=== PATIENT | male | born 1990 | race Caucasian/White ===

== ENCOUNTER 2017-03-14 02:16 | Emergency (ER) | payer OTHER, MEDICAID ==
--- NOTE | 2017-03-14 03:24 | ER Document Report ---
ED General - General Chief Complaint: Suicidal Ideation Stated Complaint: SUICIDAL IDEATIONS Time Seen by Provider: 03/14/17 03:23 Notes: Patient is a 26-year-old male who presents with complaints of hearing voices and also having suicidal thoughts and the plan. Patient has history of depression is on Effexor. He says over the last month he has been having episodes of suddenly feeling suicidal. He says there is in particular that seems to trigger. He says there is no bad events in his life at this time. He says these feelings will come out of nowhere. He says when he has these feelings he also will have with to him feels like people arguing her voice is arguing inside his head. 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 He said tonight he suddenly felt very suicidal and was having voices in his head. He said he started mixing pesticides together in a juice bottle and then was about the drink them before he realized what was going on. He quickly called his for help and was brought here. Currently he says he feels okay but is very concerned in the way that these symptoms and feelings come on suddenly. TRAVEL OUTSIDE OF THE [place] IN LAST 30 DAYS: No - Related Data Allergies/Adverse Reactions: No Known Allergies Allergy (Unverified 03/14/17 02:21) Past Medical History - Social History Smoking Status: Current Every Day Smoker Frequency of alcohol use: None Drug Abuse: None Family History: Reviewed & Not Pertinent Patient has suicidal ideation: Yes Patient has homicidal ideation: No Renal/ Medical History: Denies: Hx Peritoneal Dialysis Review of Systems - Review of Systems Notes: My Normal Review Basic REVIEW OF SYSTEMS: CONSTITUTIONAL : Denies fever, chills, or sweats. Denies recent illness. RESPIRATORY: Denies cough, cold, or chest congestion. Denies shortness of breath, difficulty breathing, or wheezing. GASTROINTESTINAL: Denies abdominal pain. Denies nausea, vomiting, or diarrhea. MUSCULOSKELETAL: Denies neck or back pain or joint pain or swelling. SKIN: Denies rash or skin lesions. NEUROLOGICAL: Denies altered mental status or loss of consciousness. Denies headache. Denies weakness or paralysis or loss of use of either side. Denies problems with gait or speech. Denies sensory or motor loss. PSYCHIATRIC: Auditory hallucinations. Suicidal ideations. ALL OTHER SYSTEMS REVIEWED AND NEGATIVE. Physical Exam - Vital signs Vitals: Temp Pulse Resp BP Pulse Ox 98 F 102 H 18 159/100 H 98 03/14/17 02:20 03/14/17 02:20 03/14/17 02:20 03/14/17 02:20 03/14/17 02:20 - Notes Notes: General Appearance: Well nourished, alert, cooperative, no acute distress, no obvious discomfort. Vitals: reviewed, See vital signs table. Head: Several scratches to the face which patient says her self-induced. No redness or swelling around them. No signs of infection. Eyes: PERRL, EOMI, Conjuctiva clear Mouth: No decreasd moisture Neck: Supple, no neck tenderness, Lungs: No wheezing, No rales, No rhonci, No accessory muscle use, good air exchange bilaterally. Heart: Normal rate, Regular rythm, No murmur, no rub Abdomen: Normal BS, soft, No rigidity, No abdominal tenderness, No guarding, no rebound, no abdominal masses, no organomegaly Extremities: strength 5/5 in all extremities, good pulses in all extremities, no swelling or tenderness in the extremities, no edema. Skin: warm, dry, appropriate color, no rash Neuro: speech clear, oriented x 3, normal affect, responds appropriately to questions. Course - Re-evaluation Re-evalutation: 03/14/17 05:30 Patient is medically stable for psychiatric evaluation and placement. He is voluntary and does want help. He therefore was not placed and found to paperwork. If patient does decide he wants to leave then we may have to consider placing him on involuntary commitment paperwork. Dictation of this chart was performed using voice recognition software; therefore, there may be some unintended grammatical errors. - Vital Signs Vital signs: Temp Pulse Resp BP Pulse Ox 98 F 102 H 18 159/100 H 98 03/14/17 02:20 03/14/17 02:20 03/14/17 02:20 03/14/17 02:20 03/14/17 02:20 - Laboratory Result Diagrams: 03/14/17 03:00 03/14/17 03:00 Laboratory results interpreted by me: 03/14/17 03/14/17 03/14/17 03:00 03:00 03:00 WBC 13.2 H Absolute Neutrophils 8.9 H Total Protein 8.3 H Albumin 5.2 H Urine Blood MODERATE H Salicylates < 1.0 L Acetaminophen < 10 L - EKG Interpretation by Me Additional EKG results interpreted by me: 03/14/17 03:24 EKG is reviewed and interpreted by me. EKG shows normal sinus rhythm with rate of [address] segment elevation or depression. No ischemic T-wave inversions. NH interval, QRS duration, QTc intervals are within normal range. No old EKG available for comparison. Discharge - Discharge Clinical Impression: Suicidal ideation, Auditory hallucination Depression Qualifiers: Depression Type: unspecified Qualified Code(s): F32.9 - Major depressive disorder, single episode, unspecified Condition: Stable Disposition: PSYCH HOSP/UNIT
[2017-03-14] MEDS ORDERED: NICOTINE 14 MG/24 HR PATCH.TD24 TD ONE ×2 (03:31→09:00)
[2017-03-14 03:49] LABS: ABSOLUTE BASOPHILS # (AUTO) 0.1 10^3/uL (0.0-0.2); ABSOLUTE EOSINOPHILS # (AUTO) 0.2 10^3/uL (0.0-0.6); ABSOLUTE LYMPHOCYTES (AUTO) 3.2 10^3/uL (0.5-4.7); ABSOLUTE MONOCYTES (AUTO) 0.8 10^3/uL (0.1-1.4); ABSOLUTE NEUT (AUTO) 8.9 10^3/uL (1.7-8.2); BASOPHILS % (AUTO) 0.6 % (0-2); EOSINOPHILS % (AUTO) 1.7 % (0-6); HEMATOCRIT 46.7 % (37.9-51.0); HEMOGLOBIN 16.6 g/dL (13.5-17.0); HGB HCT DIFFERENCE 3.1; LYMPHOCYTES % (AUTO) 24.2 % (13-45); MEAN CORPUSCULAR HEMOGLOBIN 31.1 pg (27.0-33.4); MEAN CORPUSCULAR HGB CONC 35.5 g/dL (32.0-36.0); MEAN CORPUSCULAR VOLUME 88 fl (80-97); MONOCYTES % (AUTO) 6.4 % (3-13); RED BLOOD COUNT 5.34 10^6/uL (4.35-5.55); RED CELL DISTRIBUTION WIDTH 12.7 % (11.5-14.0); SEGMENTED NEUTROPHILS % (AUTO) 67.1 % (42-78); WHITE BLOOD COUNT 13.2 10^3/uL (4.0-10.5)
[2017-03-14 04:00] LABS: ALANINE AMINOTRANSFERASE 53 U/L (21-72); ALBUMIN 5.2 g/dL (3.5-5.0); ALCOHOL < 10 mg/dL (NONE DETECTED); ALKALINE PHOSPHATASE 76 U/L (38-126); ANION GAP 16 (5-19); ASPARTATE AMINO TRANSFERASE 26 U/L (17-59); BILIRUBIN,DIRECT 0.3 mg/dL (0.0-0.4); BILIRUBIN,TOTAL 1.1 mg/dL (0.2-1.3); BLOOD UREA NITROGEN 11 mg/dL (7-20); CALCIUM 10.1 mg/dL (8.4-10.2); CARBON DIOXIDE 26 mmol/L (22-30); CHLORIDE 100 mmol/L (98-107); CREATININE RESULT 0.82 mg/dL (0.52-1.25); GLUCOSE 79 mg/dL (75-110); POTASSIUM 3.6 mmol/L (3.6-5.0); SODIUM 141.9 mmol/L (137-145); TOTAL PROTEIN 8.3 g/dL (6.3-8.2)
[2017-03-14 04:39] LABS: APPEARANCE,URINE CLEAR; BILIRUBIN,URINE NEGATIVE (NEGATIVE); GLUCOSE, URINE NEGATIVE (NEGATIVE); KETONES,URINE NEGATIVE (NEGATIVE); LEUKOCYTE ESTERASE,URINE NEGATIVE (NEGATIVE); NITRITE,URINE NEGATIVE (NEGATIVE); PROTEIN,URINE NEGATIVE (NEGATIVE); URINE SPECIFIC GRAVITY 1.006; UROBILINOGEN,URINE NEGATIVE mg/dL (<2.0)
[2017-03-14 05:04] LABS: URINE BARBITURATES SCREEN NEGATIVE; URINE METHADONE SCREEN NEGATIVE; URINE OPIATES LOW NEGATIVE; URINE PHENCYCLIDINE SCREEN NEGATIVE
--- NOTE | 2017-03-14 08:23 | EKG REPORT ---
SEVERITY:- NORMAL ECG - SINUS RHYTHM : Confirmed by: Domingo Li MD 14-Mar-2017 08:22:42
--- NOTE | 2017-03-15 11:39 | ER Document Report ---
Doctor's Note Notes: 03/15/17 11:38 Patient states he is settling down overall since when he came in yesterday. Still is having some auditory hallucinations mostly when he is waking up or going to sleep. Placement is being scheduled for him. He has no complaints at this time. I have reordered his normal Effexor that he takes daily.
[2017-03-15] MEDS ORDERED: NICOTINE 14 MG/24 HR PATCH.TD24 TD ONE (12:22)
[2017-03-15] MEDS ORDERED: VENLAFAXINE HCL 75 MG CAP.SR.24H PO ONE (14:00)
[2017-03-15] MEDS ORDERED: VENLAFAXINE HCL 37.5 MG CAP.SR.24H PO ONE (14:36)
--- NOTE | 2017-03-15 17:45 | ER Document Report ---
ED Psych Disorder / Suicide - General Chief Complaint: Suicidal Ideation Stated Complaint: SUICIDAL IDEATIONS Time Seen by Provider: 03/14/17 03:23 TRAVEL OUTSIDE OF THE [place] IN LAST 30 DAYS: No - HPI Notes: Evaluation 03/14/2017: Patient is a 26-year-old male who presents with complaints of hearing voices and also having suicidal thoughts and the plan. Patient has history of depression is on Effexor. He says over the last month he has been having episodes of suddenly feeling suicidal. He says when he has these feelings he feels like people are arguing inside his head. 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 He said tonight he suddenly felt very suicidal and was having voices in his head. He said he started mixing pesticides together in a juice bottle and then was about the drink them before he realized what was going on. He quickly called his for help and was brought here. Currently he says he feels okay but is very concerned in the way that these symptoms and feelings come on suddenly Patient disclosed he has been hearing voices for a couple of years and it was like having "extremely loud thoughts" however since September or October it has turned into the feeling like "multiple people are arguing in my head." He continued to state that he has had difficulty working and is getting harder and harder to leave the home. He continued to state that it is hard to concentrate "it feels like 100 thoughts at once and it is hard to grab individual thoughts." Patient disclosed he used to take Effexor however did stop abruptly. Patient restarted approximately 2 months ago. Patient disclosed one previous inpatient treatment in 2011 for suicidal ideation and alcohol while in the [facility]. Patient has been discharged from the [facility] since 2014. Patient's , Staci, disclosed that the [place]. She disclosed that he did have suicidal ideation in [place] and threatened to kill himself in 2013 and went inpatient. She continued disclosed concern the patient will "try to play it off to get out of having to go inpatient." Patient is alert and orientated to person place time and circumstance. Mood is dysphoric with restricted affect. Patient discloses suicidal ideation with plan. Patient denies homicidal ideation. Patient discloses auditory hallucinations. Delusions are absent and behaviors congruent with intact reality based presentation (i.e. organized, linear thinking). Conversational speech was within normal rate tone and prosody. Eye contact was well- maintained. Intellectual abilities appear to be within the average range. Attention and concentration were good. Insight, judgment, impulse control are currently fair supported by patient being able to stop himself and reach out for assistance. 311 (F32.9) unspecified depressive disorder 298.9 (F29) unspecified psychotic disorder Impression\\plan: Patient is recommended for IVC. Patient will be reevaluated. Dr. Blanton was consulted on the care and management of this patient; attending physician is in agreement with recommendations and disposition. Clinician conducted check in with patient 03/15/2017: Patient states he does not feel whole lot different. He continued disclosed that he does not remember receiving any medications. Patient states that he seems to have most difficulty with hearing the voices when he first wakes up. Patient is observed interacting with his family smiling patient is actively engaging with clinician. Patient's mother disclose that she has moved here "indefinitely" to assist with patient's care. She disclosed that when the patient is ready to be discharged she would like to be part of the discharge plan. Clinician answer questions in [facility]. 311 (F32.9) unspecified depressive disorder 298.9 (F29) unspecified psychotic disorder Impression\\plan: Patient is recommended to continue under IVC. Patient will be reevaluated. Dr. Blanton was consulted and the care and management of this patient; attending physician is in agreement with recommendations and disposition. Clinician Conducted Check in with patient 03/16/2017: Patient stated he is feeling much better and slept all night. Patient disclosed he has not been hearing any voices. Patient is noted to have euthymic mood with congruent affect. Patient denies suicidal and homicidal ideation. Patient denies current auditory hallucinations. Delusions are absent and behaviors congruent with intact reality based presentation i.e. organized, linear, rational thinking. 311 (F32.9) unspecified depressive disorder 298.9 (F29) unspecified psychotic disorder Impression\\plan: Patient is recommended for rescind of IVC and is considered psychiatrically clear for discharge. Patient no longer meets IVC criteria per [place] GS 122C. Patient denies current suicidal and homicidal ideation. Delusions are absent and behaviors congruent with intact reality based presentation i.e. organized, linear, rational thinking. Patient denies current auditory hallucinations and discloses improvement on symptoms. Patient demonstrating baseline behavior i.e. actively engaging with clinician, smiling, laughing and actively involved in developing discharge plan. Patient's mother discloses she has moved to area to assist with the patient's care. Both spouse and mother agreed to ensure the patient has no access to medications or weapons and to follow-up with all recommendations for mental health education and therapeutic treatments. [facility]; [facility] been [facility] and the [facility] be [facility] the patient. Dr. Blanton was consulted and the care and management of this patient; attending physician is in agreement with recommendations and disposition. - Related Data Allergies/Adverse Reactions: No Known Allergies Allergy (Unverified 03/14/17 02:21) Home Medications: Current Home Medications Venlafaxine HCl ER [Effexor Xr 75 mg Cap.sr] 75 mg PO DAILY 03/14/17 [History] Past Medical History - Social History Smoking Status: Current Every Day Smoker Chew tobacco use (# tins/day): No Frequency of alcohol use: None Drug Abuse: None Family History: Reviewed & Not Pertinent Patient has suicidal ideation: Yes Patient has homicidal ideation: No Renal/ Medical History: Denies: Hx Peritoneal Dialysis Past Surgical History: Reports: Hx Oral Surgery - wisdom teeth, Hx Tonsillectomy - Immunizations Hx Diphtheria, Pertussis, Tetanus Vaccination: Yes Physical Exam - Vital signs Vitals: Temp Pulse Resp BP Pulse Ox 98 F 102 H 18 159/100 H 98 03/14/17 02:20 03/14/17 02:20 03/14/17 02:20 03/14/17 02:20 03/14/17 02:20 Course - Vital Signs Vital signs: Temp Pulse Resp BP Pulse Ox 98.3 F 78 16 130/70 H 98 03/16/17 04:04 03/16/17 04:04 03/16/17 04:04 03/16/17 04:04 03/16/17 04:04 - Laboratory Result Diagrams: 03/14/17 03:00 03/14/17 03:00 Laboratory results interpreted by me: 03/14/17 03/14/17 03/14/17 03:00 03:00 03:00 WBC 13.2 H Absolute Neutrophils 8.9 H Total Protein 8.3 H Albumin 5.2 H Urine Blood MODERATE H Salicylates < 1.0 L Acetaminophen < 10 L Discharge - Discharge Clinical Impression: Suicidal ideation, Auditory hallucination Depression Qualifiers: Depression Type: unspecified Qualified Code(s): F32.9 - Major depressive disorder, single episode, unspecified Condition: Stable Disposition: HOME, SELF-CARE Additional Instructions: DEPRESSION: Your evaluation reveals that you have mental depression. While symptoms may be vague, they often include disturbance of sleep, fatigue, loss of appetite , and general loss of interest in life. While depression may be a side effect of drugs, or a reaction to a major change in your life, many cases have no known cause. If depression is acute, and related to a major loss in your life, you can expect it to clear completely with time. If you have been depressed a long time , are prone to repeated bouts of depression or low mood, or have been thinking of suicide, get help. Depression can be treated with anti-depressant medication and counselling. Long-term depression will often take a few weeks to clear, even with appropriate medication. Follow-up care is important. SUICIDAL IDEATION: Suicidal ideation is a common medical term for thoughts about suicide, which may be as detailed as a formulated plan, without the suicidal act itself. Although most people who undergo suicidal ideation do not commit suicide, some go on to make suicide attempts. The range of suicidal ideation varies greatly from fleeting to detailed planning, role playing, and unsuccessful attempts. While thoughts about suicide are common, most people do not carry out serious actions to commit suicide. Based upon your evaluation and discussion with you, we do not believe you are currently at risk to act upon your thoughts of suicide. You have agreed to return to the Emergency Department, at any time , if you feel inclined to act upon your suicidal thoughts. FOLLOW-UP CARE: Referral to the local [place] office has been submitted and they will be contacting you for an appointment. Please [facility] with the [facility] if you have not heard from them in 3-5 days. If you experience worsening or a significant change in your symptoms, notify the physician immediately or return to the Emergency Department at any time for re-evaluation. Referrals: [facility] [Provider Group] - Follow up in 3-5 days
[2017-03-15] MEDS: OLANZAPINE 2.5 MG TABLET PO SCH (18:13)
[2017-03-15] MEDS ORDERED: CLONIDINE HCL 0.1 MG TABLET PO SCH (22:00)
--- NOTE | 2017-03-16 09:26 | ER Document Report ---
Doctor's Note Notes: 03/16/17 09:26 As the rounding physician for our psychiatric patients, I have reviewed the chart, vitals, lab work. Patient has been examined and noted to be resting comfortably . I am awaiting mental health in [place].
[2017-03-16] MEDS ORDERED: VENLAFAXINE HCL 37.5 MG CAP.SR.24H PO SCH (10:00)
[2017-03-16] MEDS ORDERED: VENLAFAXINE HCL 75 MG CAP.SR.24H PO SCH (10:00)
[2017-03-16] MEDS ORDERED: FLUOXETINE HCL 20 MG CAPSULE PO SCH (10:00)
[2017-03-16] MEDS: OLANZAPINE 2.5 MG TABLET PO SCH (10:47)
[2017-03-16 11:07] VITALS: BP 144/83
== END 2017-03-16 11:00 | disposition home or self-care (01) ==
LOC: ER 02:16
DX: R45.851 Suicidal ideations (principal); R44.0 Auditory hallucinations; F32.9 Major depressive disorder, single episode, unspecified; F29 Unspecified psychosis not due to a substance or known physiological condition; Z79.899 Other long term (current) drug therapy; F17.200 Nicotine dependence, unspecified, uncomplicated
CPT/HCPCS: 93005; 99285; 36415; 80307 ×4; 85025; 80053; 81001; 93010; J3490 ×3